=== PATIENT | female | born 1990 | race African-American/Black ===

== ENCOUNTER 2016-11-09 11:00 | Observation (INO) | payer MEDICAID ==
[~2016-11-09] VITALS: Ht 152.4 cm; Wt 72.6 kg
[~2016-11-09 11:00] MED LIST: DIPH25CA39; MOTRIN; NORGTAB
[2016-11-09] MEDS ORDERED: BETAMETHASONE ACET (6MG/ML) 5ML VIAL IM SCH (12:00)
== END 2016-11-09 13:26 | disposition home or self-care (01) | DRG 566 ==
LOC: LDRP 11:00 → EDUNIT# 11:00
PROVIDERS: ADMIT Specialist; ATTEND Specialist
DX: O26.873 Cervical shortening, third trimester (principal); Z3A.32 32 weeks gestation of pregnancy
CPT/HCPCS: 59025; 76815; 81002; 96372; G0378; J0702

== ENCOUNTER 2016-11-10 11:30 | Observation (INO) | payer MEDICAID ==
[~2016-11-10] VITALS: Ht 30.5 cm; Wt 0.5 kg
[2016-11-10] MEDS ORDERED: BETAMETHASONE ACET (6MG/ML) 5ML VIAL IM ONE (11:45)
== END 2016-11-10 12:55 | disposition home or self-care (01) | DRG 563 ==
LOC: EDUNIT# 11:30 → LDRP 11:30
PROVIDERS: ADMIT Specialist; ATTEND Specialist
DX: O60.00 Preterm labor without delivery, unspecified trimester (principal); O26.873 Cervical shortening, third trimester; Z3A.32 32 weeks gestation of pregnancy
CPT/HCPCS: 59025; 81002; 96372; G0378

== ENCOUNTER 2016-11-17 08:42 | Observation (INO) | payer MEDICAID | END 2016-11-17 10:55 | disposition home or self-care (01) | DRG 566 | LOC: LDRP 08:42 | PROVIDERS: ADMIT Specialist; ATTEND Specialist | DX: O26.873 Cervical shortening, third trimester (principal); O60.03 Preterm labor without delivery, third trimester; Z3A.33 33 weeks gestation of pregnancy | CPT/HCPCS: 59025; 76818; 81002; G0378 ==

== ENCOUNTER 2016-12-11 11:15 | Observation (INO) | payer MEDICAID | END 2016-12-11 12:15 | disposition home or self-care (01) | DRG 955 | LOC: LDRP 11:15 | PROVIDERS: ADMIT Obstetrics & Gynecology; ATTEND Obstetrics & Gynecology | DX: O26.899 Other specified pregnancy related conditions, unspecified trimester (principal); E86.0 Dehydration; R11.2 Nausea with vomiting, unspecified; Z3A.00 Weeks of gestation of pregnancy not specified | CPT/HCPCS: 59025; 81002; G0378 ==

== ENCOUNTER 2016-12-20 08:25 | Inpatient (IN) | payer MEDICAID ==
[~2016-12-20] VITALS: Ht 1 cm; Wt 0.5 kg
[2016-12-20 09:45] LABS: Urine Bilirubin Negative (Negative); Urine Blood Negative /uL (Negative); Urine Color Yellow (Yellow); Urine Glucose Normal (Normal); Urine Ketone Negative (Negative); Urine Nitrite Negative (Negative); Urine RBC 1 /hpf (0 - 4); Urine Squamous Epithelial Cell FEW /hpf (<5); Urine Urobilinogen Normal (Negative); Urine pH 6.5 (5.0-8.0)
[2016-12-20] MEDS ORDERED: LACT. RINGERS/OXYTOCIN 20UNITS 1,000 ML IV SCH (11:08)
[2016-12-20] MEDS ORDERED: NALBUPHINE HCL 10 MG/1ml INJECTION IV PRN (11:15)
[2016-12-20] MEDS ORDERED: LIDOCAINE 2%HCL (LOCAL ANESTH.) INJ 20ML MDV IJ ONE ×2 (11:15→17:30)
[2016-12-20] MEDS ORDERED: WITCH HAZEL-GLYCERIN PAD TOP PRN (11:15)
[2016-12-20] MEDS ORDERED: METHYLERGONOVINE MALEATE 0.2 MG/ML AMP IM PRN (11:15)
[2016-12-20] MEDS ORDERED: PHISODERM TOP SOLN 240ML BTL TOP PRN (11:15)
[2016-12-20] MEDS ORDERED: DERMOPLAST 60ML BOTTLE TOP PRN (11:15)
[2016-12-20] MEDS: LACTATED RINGER'S 1,000 ML IV SCH ×2 (11:26→19:08)
[2016-12-20] MEDS ORDERED: PENICILLIN G POT 5MIL/D5 50ML 50 ML IV ONE (11:30)
[2016-12-20 11:51] LABS: Basophils # (auto) 0 uL; Basophils % (auto) 0.3 % (0.0-2.0); CONDITION Y; Eosinophils # (auto) 0 uL; Eosinophils % (auto) 0.3 % (0.0-7.0); Hematocrit 38.2 % (36.0-46.0); Hemoglobin 12.8 g/dL (12.2-16.2); Lymphocytes # (auto) 2.2 uL; Lymphocytes % (auto) 21.6 % (10.0-50.0); Mean Corpuscular Hgb Conc. 33.5 g/dL (32.0-36.0); Mean Corpuscular Volume 86.6 fL (80.0-100.0); Mean Platelet Volume 9.6 fL (7.4-10.4); Monocytes # (auto) 0.5 uL; Monocytes % (auto) 4.9 % (0.0-12.0); Neutrophils # (auto) 7.5 uL; Neutrophils % (auto) 72.9 % (37.0-80.0); Platelet Count (auto) 256 10^3/uL (140-450); Red Cell Distribution Width 14.4 % (11.6-16.0); SUSPECT SEE PRINTOUT; White Blood Cell 10.3 10^3/uL (4.4-10.8)
[2016-12-20 12:08] LABS: INR 0.86 (0.9-1.15); Partial Thromboplastin Time 27.1 sec (22.64-33.71); Prothrombin Time 9.4 sec (9.37-12.3)
[2016-12-20 12:21] LABS: Albumin 2.5 g/dL (3.4-5.0); BUN/Creatinine Ratio 11.9; Bilirubin, Total 0.3 mg/dL (0.2-1.0); Calcium 8.4 mg/dL (8.5-10.1); Potassium 3.7 mmol/L (3.5-5.1); Total Protein 6.4 g/dL (6.4-8.2)
[2016-12-20] MEDS ORDERED: TERBUTALINE SULFATE 1 MG/ML 1ML VIAL SC ONE (12:30)
[2016-12-20] MEDS: PENICILLIN G POTASSIUM 2,500,000 UNITS in D5W 5% 50 ML IV SCH ×3 (16:00→20:03)
[2016-12-20] MEDS ORDERED: PROMETHAZINE HCL 25 MG/ML 1ML IV ONE (16:45)
[2016-12-20] MEDS ORDERED: PROMETHAZINE HCL 25 MG/ML 1ML IM ONE (16:45)
[2016-12-20] MEDS ORDERED: NALOXONE HCL 0.4 MG/ML VIAL IM ONE (17:30)
[2016-12-20] MEDS ORDERED: ACETAMINOPHEN 325 MG TAB PO PRN (21:00)
[2016-12-20] MEDS: IBUPROFEN 600 MG TAB PO PRN (22:30)
[2016-12-20 22:38] VITALS: BP 112/69
[2016-12-21] MEDS: IBUPROFEN 600 MG TAB PO PRN ×5 (01:26→15:51)
[2016-12-21 03:23] VITALS: BP 109/58
[2016-12-21] MEDS: LACTATED RINGER'S 1,000 ML IV SCH (03:23)
[2016-12-21 07:55] VITALS: BP 105/72
[2016-12-21] MEDS ORDERED: PREN-96 PO (08:46)
[2016-12-21 12:06] VITALS: BP 111/55
[2016-12-21 15:36] VITALS: BP 108/72
[2016-12-21 19:30] VITALS: BP 110/72
[2016-12-21 23:30] VITALS: BP 110/72
[2016-12-22] MEDS: IBUPROFEN 600 MG TAB PO PRN
[2016-12-22 03:30] VITALS: BP 115/78
[2016-12-22 06:53] VITALS: BP 131/75
== END 2016-12-22 08:50 | disposition home or self-care (01) | DRG 560 ==
LOC: LDRP 08:25 → OBSVTOIN 08:25 → LDRP 11:06
PROVIDERS: ADMIT Specialist; ATTEND Specialist
PROC: 10E0XZZ Delivery of Products of Conception, External Approach (ICD-10-PCS; principal; 2016-12-20)
DX: O99.824 Streptococcus B carrier state complicating childbirth (principal); O76 Abnormality in fetal heart rate and rhythm complicating labor and delivery; O69.81X0 Labor and delivery complicated by cord around neck, without compression, not applicable or unspecified; Z37.0 Single live birth; Z3A.38 38 weeks gestation of pregnancy
CPT/HCPCS: 36415; 59025; 59409; 80053; 81001; 81002; 85025; 85610; 85730; 86850; 86900; 86901; 90686; 94760; 96365; 96366; J2540; J2590; J7060

== ENCOUNTER → 2019-09-29 | Outpatient (CLI) | payer OTHER ==
[~2019-09-29] MED LIST changes: -DIPH25CA39; -MOTRIN; -NORGTAB; +PREN-96 PO
[2019-09-29 09:33] LABS: Basophils # (auto) 0 10 ^3/uL (0-0.2); Basophils % (auto) 0.5 % (0.0-2.0); Eosinophils # (auto) 0 10 ^3/uL (0-0.8); Eosinophils % (auto) 0.5 % (0.0-7.0); Hematocrit 43.5 % (36.0-46.0); Hemoglobin 14.6 g/dL (12.2-16.2); Lymphocytes # (auto) 2.7 10 ^3/uL (0.4-5.4); Lymphocytes % (auto) 42.3 % (10.0-50.0); Mean Corpuscular Hemoglobin 30.3 pg (28.0-32.0); Mean Corpuscular Hgb Conc. 33.6 g/dL (32.0-36.0); Mean Corpuscular Volume 90.1 fL (80.0-100.0); Monocytes # (auto) 0.3 10 ^3/uL (0-1.3); Neutrophils # (auto) 3.3 10 ^3/uL (1.6-8.6); Neutrophils % (auto) 51.7 % (37.0-80.0); Nucleated Red Blood Cells % 0.1 %; Platelet Count (auto) 292 10^3/uL (140-450); Red Blood Cells 4.82 10^6/uL (4.0-5.20); Red Cell Distribution Width 13.4 % (11.8-14.3); White Blood Cell 6.3 10^3/uL (4.4-10.8)
[2019-09-29 10:14] LABS: Albumin 3.9 g/dL (3.4-5.0); Calcium 9.2 mg/dL (8.5-10.1); Potassium 3.9 mmol/L (3.5-5.1)
[2019-09-29 10:18] LABS: BUN/Creatinine Ratio 13.2; Bilirubin, Total 0.5 mg/dL (0.2-1.0); Total Protein 8.1 g/dL (6.4-8.2)
[2019-09-29 10:23] LABS: Follicle Stimulating Hormone 9.19 IU/L (SEE BELOW); Prolactin 14.25 ng/mL (2.8-29.2)
== END | disposition home or self-care (01) ==
LOC: LAB 08:56
PROVIDERS: ATTEND Obstetrics & Gynecology
DX: E83.32 Hereditary vitamin D-dependent rickets (type 1) (type 2) (principal); D56.5 Hemoglobin E-beta thalassemia; R53.82 Chronic fatigue, unspecified; E78.00 Pure hypercholesterolemia, unspecified; E05.90 Thyrotoxicosis, unspecified without thyrotoxic crisis or storm; Z78.0 Asymptomatic menopausal state
CPT/HCPCS: 36415; 80053; 80061; 82306; 82670; 83001; 83036; 84146; 84443; 85025